=== PATIENT | male | born 1945 | race Caucasian/White ===

== ENCOUNTER 2019-02-01 15:02 | Outpatient (CLI) | payer MEDICARE, OTHER ==
[2019-02-01 15:26] LABS: BASOPHILS # (AUTO) 0.1 10^3/uL (0.0-0.1); BASOPHILS % (AUTO) 1.1 %; EOSINOPHILS # (AUTO) 0.1 10^3/uL (0.0-0.7); EOSINOPHILS % (AUTO) 0.7 %; HGB - HEMOGLOBIN 15.6 g/dL (14.0-18.0); LYMPHOCYTES # (AUTO) 1.6 10^3/uL (1.5-3.5); LYMPHOCYTES % (AUTO) 15.9 %; MEAN CORPUSCULAR HEMOGLOBIN 29.8 pg (27.0-31.0); MEAN CORPUSCULAR HGB CONC 34.6 g/dL (32.0-36.0); MONOCYTES # (AUTO) 1.4 10^3/uL (0.0-1.0); MONOCYTES % (AUTO) 13.4 %; NEUTROPHILS % (AUTO) 68.9 %; PLT - PLATELET COUNT 139 10^3/uL (130-450); RED BLOOD COUNT 5.22 10^6/uL (4.70-6.10); RED CELL DISTRIBUTION WIDTH 14.1 % (12.0-15.0); WHITE BLOOD COUNT 10.2 x10^3/uL (4.8-10.8)
[2019-02-01 15:34] LABS: ALBUMIN 4.1 g/dL (3.2-5.5); ALBUMIN/GLOBULIN RATIO 1.3 (1.0-2.2); BILIRUBIN,TOTAL 1.2 mg/dL (0.2-1.0); CALCIUM 9.6 mg/dL (8.5-10.3); CREATININE 1.1 mg/dL (0.6-1.2); TOTAL PROTEIN 7.2 g/dL (6.7-8.2)
--- NOTE | 2019-02-01 17:18 | Ultrasound Report ---
Reason: RIGHT LEG Procedure Date: 02/01/2019 Accession Number: [id number] / [id number] Procedure: US - Duplex Ext Veins Right CPT Code: FULL RESULT: EXAM: RIGHT LOWER EXTREMITY VENOUS ULTRASOUND EXAM DATE: 02/01/2019 04:57 PM. CLINICAL HISTORY: Right leg soft tissue disorder COMPARISON: None. TECHNIQUE: Real-time sonographic vascular imaging was performed by the monotype mechanic through the lower extremity utilizing both color-flow and Doppler spectral analysis. Multiple open claims representative static images were saved for review. FINDINGS: Common Femoral Vein (CFV): Normal. CFV-GSV Junction: Normal. Profunda Femoral Vein (PFV): Normal. Femoral Vein (FV) Prox: Normal. Femoral Vein (FV) Mid: Normal. Femoral Vein (FV) Dist: Normal. Popliteal Vein: Normal. Posterior Tibial Veins: Normal. Peroneal Veins: Normal. Other: None. IMPRESSION: No evidence for right lower extremity deep venous thrombosis. RADIA
== END 2019-02-01 15:03 | disposition home or self-care (01) ==
LOC: DI 15:02
PROVIDERS: ATTEND Specialist
DX: M79.89 Other specified soft tissue disorders (principal)
CPT/HCPCS: 36415; 80053; 85025; 85379

== ENCOUNTER 2020-08-27 16:54 | Outpatient (CLI) | payer MEDICARE, OTHER | END 2020-08-27 16:55 | disposition critical access hospital (66) | LOC: EMS 16:54 | PROVIDERS: ATTEND Surgery | DX: R11.2 Nausea with vomiting, unspecified (principal); R53.1 Weakness | CPT/HCPCS: A0425; A0427 ==

== ENCOUNTER 2020-08-27 17:22 | Observation (INO) | payer MEDICARE, OTHER ==
--- NOTE | 2020-08-27 17:50 | ED Physician Documentation ---
History of Present Illness - Stated complaint Stated Complaint: NEAR SYNCOPE - Chief complaint Chief Complaint: General - History obtained from History obtained from: Patient, EMS - History of Present Illness Timing: Today Pain level max: 0 Pain level now: 0 - Additonal information Additional information: 75-year-old male with diarrhea x2 today and vomiting x1. [place] lightheaded, weak, dizzy. Had difficulty getting up off the floor. He called a friend who came over and helped him to the bathroom. His friend then called 911 and EMS brought him here. Patient states that he feels much better currently. Denies any fevers, chills. He is currently taking Keflex for left lower extremity cellulitis. He states it has greatly improved as well. Has bilateral lower extremity edema. No abdominal pain. No chest pain. No shortness of breath. No hematemesis or blood in the stool. Review of Systems Ten Systems: 10 systems reviewed and negative Constitutional: denies: Fever, Chills Ears: denies: Ear pain Nose: denies: Rhinorrhea / runny nose, Congestion Throat: denies: Sore throat Respiratory: denies: Cough GI: reports: Nausea, Vomiting, Diarrhea. denies: Abdominal Pain, Abdominal Swelling, Hematemesis, Bloody / black stool : denies: Dysuria, Frequency, Hesitancy Skin: denies: Rash Musculoskeletal: denies: Neck pain, Back pain Neurologic: denies: Headache PD PAST MEDICAL HISTORY - Past Medical History Past Medical History: Yes Cardiovascular: Hypertension, High cholesterol - Past Surgical History Past Surgical History: No - Present Medications Home Medications: Ambulatory Orders Medication Instructions Recorded Confirmed Amlodipine Besylate [Norvasc] 1 tab DAILY 08/27/20 08/27/20 Cephalexin [Keflex] 500 mg QID 08/27/20 08/27/20 Lisinopril [Zestril] 40 mg PO DAILY 08/27/20 08/27/20 Tamsulosin [Flomax] 0.4 mg BID 08/27/20 08/27/20 - Allergies Allergies/Adverse Reactions: Allergies Allergy/AdvReac Type Severity Reaction Status Date / Time No Known Drug Allergies Allergy Verified 08/27/20 17:48 - Living Situation Living Situation: reports: With family Living Arrangement: reports: At home - Social History Does the pt have substance abuse?: No - Family History Family history: reports: Non contributory PD ED PE NORMAL - Vitals Vital signs reviewed: Yes - General General: Alert and oriented X 3, No acute distress, Well developed/nourished - HEENT HEENT: PERRL, Moist mucous membranes - Neck Neck: Supple, no meningeal sign - Cardiac Cardiac: RRR, Strong equal pulses - Respiratory Respiratory: No respiratory distress, Clear bilaterally - Abdomen Abdomen: Soft, Non tender, Non distended - Derm Derm: Warm and dry - Extremities Extremities: Other (2+ pitting edema B, NVI. mild erythema to the L lower leg. NVI) - Neuro Neuro: Alert and oriented X 3 - Psych Psych: Normal mood, Normal affect Results - Vitals Vitals: Vital Signs - 24 hr 08/27/20 08/27/20 08/27/20 17:33 18:30 20:00 Temperature 36.5 C 36.5 C Heart Rate 60 58 L 58 L Respiratory 16 18 18 Rate Blood Pressure 172/75 H 169/86 H 160/84 H O2 Saturation 99 97 96 08/27/20 21:46 Temperature 36.5 C Heart Rate 59 L Respiratory 20 Rate Blood Pressure 179/85 H O2 Saturation 95 Oxygen O2 Source Room air - EKG (time done) 1754 Rate: Rate (enter#) (61) Rhythm: NSR [place]: Normal Intervals: Normal [place] QRS: Normal Ischemia: Non specific changes - Labs Labs: Laboratory Tests 08/27/20 08/27/20 17:52 17:52 WBC 11.3 H RBC 5.13 Hgb 15.2 Hct 46.1 MCV 89.9 MCH 29.6 MCHC 33.0 RDW 12.9 Plt Count 225 MPV 9.8 Neut # (Auto) 9.9 H Lymph # (Auto) 0.6 L [place] # (Auto) 0.6 Eos # (Auto) 0.0 Baso # (Auto) 0.0 Absolute Nucleated RBC 0.00 Nucleated RBC % 0.0 Sodium 137 Potassium 3.4 L Chloride 99 L Carbon Dioxide 25 Anion Gap 13.0 BUN 15 Creatinine 1.0 Estimated GFR (MDRD) 72 L Glucose 187 H Calcium 8.9 Phosphorus 2.6 Magnesium 2.0 Total Bilirubin 0.8 AST 31 ALT 78 H Alkaline Phosphatase 79 Total Protein 7.5 Albumin 3.7 Globulin 3.8 Albumin/Globulin Ratio 1.0 Lipase 22 - Rads (name of study) CT abd/pelvis Radiology: Prelim report reviewed, EMP read contemporaneously, See rad report PD MEDICAL DECISION MAKING - ED course Complexity details: reviewed results, re-evaluated patient, considered differential, d/w patient ED course: Patient with what appears to be a viral gastroenteritis. He is well-appearing, nontoxic. Afebrile. He is not tender over the gallbladder, there is nonspecific gallbladder wall thickening on CT, but without tenderness, doubt cholecystitis clinically. He continues to have cellulitis of the left lower extremity. Given Rocephin. He is only on Keflex, would likely broaden the coverage by adding doxycycline. Patient is still nauseated at the time of signout. Given Phenergan. He will need p.o. challenge and road test to make sure he improves as expected. Patient signed out to the oncoming emergency department physician. 1. No evidence of bowel obstruction. 2. Mild nonspecific gallbladder wall thickening without calcified gallstones or pericholecystic fluid. If there is clinical suspicion for cholecystitis, further evaluation may be obtained with ultrasound. 3. Extensive colonic diverticulosis without acute diverticulitis. 4. Suggestion of mild segmental colonic wall thickening distally which may represent a mild colitis, but evaluation is limited due to incomplete distention. Correlation is recommended clinically. 5. Small fat-containing left inguinal hernia. Departure - Departure Clinical Impression: Viral gastroenteritis, Nausea Cellulitis Qualifiers: Site of cellulitis: unspecified site Qualified Code(s): L03.90 - Cellulitis, unspecified Condition: Stable
[2020-08-27] MEDS: SODIUM CHLORIDE 0.9% 1,000 ML IV STA ×2 (18:00→22:09)
[2020-08-27 18:05] LABS: BASOPHILS % (AUTO) 0.3 %; EOSINOPHILS % (AUTO) 0.2 %; HGB - HEMOGLOBIN 15.2 g/dL (14.0-18.0); LYMPHOCYTES # (AUTO) 0.6 10^3/uL (1.5-3.5); LYMPHOCYTES % (AUTO) 5.5 %; MEAN CORPUSCULAR HEMOGLOBIN 29.6 pg (27.0-31.0); MEAN CORPUSCULAR VOLUME 89.9 fL (80.0-94.0); MEAN PLATELET VOLUME 9.8 fL (7.4-11.4); MONOCYTES # (AUTO) 0.6 10^3/uL (0.0-1.0); MONOCYTES % (AUTO) 5.1 %; NEUTROPHILS # (AUTO) 9.9 10^3/uL (1.5-6.6); NEUTROPHILS % (AUTO) 87.5 %; PLT - PLATELET COUNT 225 10^3/uL (130-450); RED BLOOD COUNT 5.13 10^6/uL (4.70-6.10); RED CELL DISTRIBUTION WIDTH 12.9 % (12.0-15.0); WHITE BLOOD COUNT 11.3 x10^3/uL (4.8-10.8)
[2020-08-27 18:12] LABS: ALBUMIN 3.7 g/dL (3.2-5.5); BILIRUBIN,TOTAL 0.8 mg/dL (0.2-1.0); CALCIUM 8.9 mg/dL (8.5-10.3); PHOSPHORUS 2.6 mg/dL (2.5-4.6); TOTAL PROTEIN 7.5 g/dL (6.7-8.2)
[2020-08-27] MEDS ORDERED: ONDANSETRON 4 MG/2 ML VIAL IVP STA (19:16)
[2020-08-27] MEDS ORDERED: IOVERSOL 320 100 ML VIAL IVP ONE ×2 (19:41→19:58)
--- NOTE | 2020-08-27 20:43 | CT Report ---
PROCEDURE: Abdomen/Pelvis W INDICATIONS: vomiting, abd pain CONTRAST: IV CONTRAST: Optiray 320 ml: 100 PO CONTRAST: *NO PO CONTRAST TECHNIQUE: After the administration of intravenous contrast, 5 mm thick sections acquired from the diaphragms to the symphysis. 5 mm thick coronal and sagittal reformats were acquired. For radiation dose reducti on, the following was used: automated exposure control, adjustment of mA and/or kV according to mike ent size. COMPARISON: None. FINDINGS: Image quality: Excellent. ABDOMEN: Lung bases: There is mild dependent atelectasis bilaterally. Clustered groundglass nodular opacities are demonstrated within the inferior left lingula and left lower lobe. Heart size is normal. Solid organs: Evaluation of the liver demonstrates no focal hepatic lesions. There is mild gallbladd er wall thickening no calcified gallstones or pericholecystic fluid. Biliary system is non dilated. The spleen is normal in size. There are a few small hypodense foci within the spleen suggestive of sm all nonspecific cysts. Pancreas enhances normally without peripancreatic fat stranding or fluid colle ctions. No adrenal nodules. Kidneys demonstrate no hydronephrosis. There is a large exophytic left renal cyst as well as additional small low-density foci within the kidneys bilaterally likely represe nting cysts. Peritoneum and bowel: Small bowel loops demonstrate normal wall thickness and caliber. No pericecal i nflammatory changes to suggest appendicitis. There is extensive diverticulosis throughout the colon w ithout acute diverticulitis. The distal colon is nondistended with suggestion of mild wall thickening in the sigmoid colon and distal descending colon. No free fluid or air. Nodes and vessels: No retroperitoneal or mesenteric adenopathy by size criteria. Aorta and inferior vena cava are normal in size. Miscellaneous: No ventral hernias. PELVIS: Genitourinary: Bladder wall thickness is normal. There is heterogeneous enlargement of the prostate. Miscellaneous: There is a small fat-containing left inguinal hernia. No inguinal adenopathy. Bones: No suspicious bony lesions. No vertebral body compression fractures. IMPRESSION: 1. No evidence of bowel obstruction. 2. Mild nonspecific gallbladder wall thickening without calcified gallstones or pericholecystic fluid . If there is clinical suspicion for cholecystitis, further evaluation may be obtained with ultrasoun d. 3. Extensive colonic diverticulosis without acute diverticulitis. 4. Suggestion of mild segmental colonic wall thickening distally which may represent a mild colitis, but evaluation is limited due to incomplete distention. Correlation is recommended clinically. 5. Small fat-containing left inguinal hernia. Reviewed by: Eric Morales MD on 08/27/2020 8:42 PM PST Approved by: Eric Morales MD on 08/27/2020 8:42 PM PST Station ID: [id number]
[2020-08-27] MEDS ORDERED: cefTRIAXone 1 GM VIAL IVP STA (21:31)
[2020-08-27] MEDS ORDERED: SODIUM CHLORIDE 0.9% 1,000 ML IV STA (22:04)
[2020-08-27] MEDS ORDERED: PROMETHAZINE INJ 25 MG in SODIUM CHLORIDE 0.9% 50 ML IV STA (22:04)
[2020-08-27] MEDS ORDERED: PROMETHAZINE 25 MG/1 ML VIAL ONE (22:16)
[2020-08-28] MEDS ORDERED: PROCHLORPERAZINE 10 MG/2 ML VIAL IVP PRN (00:49)
[2020-08-28] MEDS ORDERED: ONDANSETRON 4 MG/2 ML VIAL IVP PRN (00:49)
[2020-08-28] MEDS ORDERED: ACETAMINOPHEN 325 MG TABLET PO PRN (00:49)
[2020-08-28] MEDS ORDERED: SODIUM CHLORIDE FLUSH 0.9% 10 ML SYRINGE IVP PRN (00:49)
--- NOTE | 2020-08-28 00:56 | HISTORY & PHYSICAL EXAMINATION ---
Chief Complaint - Chief Complaint Chief Complaint: Nausea and vomiting History of Present Illness - Admitted From Admitted From:: Home - History Obtained From Records Reviewed: Yes History obtained from: Patient, ER Physician, EMR - History of Present Illness HPI Comment/Other: This is a 75-year-old male with a past medical history significant for h ypertension, BPH who presents today complaining of generalized weakness along with nausea and vomiting. He states he was diagnosed with cellulitis of the left lower extremity a little over a week ago. He has been on Keflex and has had improvement in the erythema of the left lower extremity although still persist. He was in his usual state of health this morning was able to run errands like driving the postop is without any difficulties. He began to eat a salad for lunch when he developed nausea and vomiting. He felt lightheaded and dizzy but did not pass out. He had a near syncopal episode when he stood up quickly. He denies any chest pain or dyspnea. He denies any abdominal pain. H e states he did have one episode of diarrhea today. He does have some difficulty urinating at times which is chronic for him due to BPH. Denies any dysuria or hematuria. He states his left lower extremity edema is improved but persists. Denies any trauma to the leg. He has been compliant with the Keflex. He reports no current fevers or chills but reports subjective fevers a few days ago. Denies any sick contacts. Reports no sore throat or nasal congestion. He does complain of postnasal drip. In the emergency department, he was found to be afebrile with a temperature of 36.5 C. His heart was in the 60s. Blood pressure was 170/75. He was not tachypneic and saturating well on room air. His labs were significant for mild leukocytosis and potassium of 3.4. His troponin was 16.5. He was given 2 L of normal saline as well as multiple doses of antiemetics in the emergency depart ment. He underwent a CT of the abdomen pelvis which showed mild nonspecific gallbladder wall thickening and extensive diverticulosis without diverticulitis. Mild colonic wall thickening distally which really may represent a mild colitis. Despite hydration antiemetics, he continued to have nausea and vomiting and failed p.o. challenge. He also had significant challenges getting out of bed on his own and due to this, medicine was consulted for admission. I did discuss goals of care with the patient and he would like to be a full code. History - Past Medical History Cardiovascular: reports: Hypertension, High cholesterol Respiratory: reports: Sleep apnea GI: reports: GERD : reports: Benign prostate hypertrophy MRSA Hx?: No Other Past Medical History: LLE cellulitis - Family & Social History Family History Comment/Other: Reports his father had COPD. He was a smoker. His father also suffered from alcoholism. His mother had breast cancer. Living arrangement: At home Living Situation: Alone Social History Notes: He reports living at home alone. He is a non-smoker. He will have occasional alcoholic beverage. 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 Meds/Allgy - Home Medications Home Medications: Ambulatory Orders Medication Instructions Recorded Confirmed Amlodipine Besylate [Norvasc] 1 tab DAILY 08/27/20 08/27/20 Cephalexin [Keflex] 500 mg QID 08/27/20 08/27/20 Lisinopril [Zestril] 40 mg PO DAILY 08/27/20 08/27/20 Tamsulosin [Flomax] 0.4 mg BID 08/27/20 08/27/20 - Allergies Allergies/Adverse Reactions: Allergies Allergy/AdvReac Type Severity Reaction Status Date / Time No Known Drug Allergies Allergy Verified 08/27/20 17:48 Review of Systems - Constitutional Constitutional: reports: Weakness. denies: Fatigue, Fever, Chills, Poor appetite - Ears, Nose & Throat Ears, Nose & Throat: reports: Postnasal drainage. denies: Nasal discharge, Nasal congestion - Cardiovascular Cariovascular: reports: Edema, Lightheadedness. denies: Chest pain, Syncope, Exertional dyspnea, Decr. exercise tolerance - Respiratory Respiratory: denies: Cough, SOB at rest, SOB with exertion - Gastrointestinal Gastrointestinal: reports: Diarrhea, Change in bowel habits, Nausea, Vomiting. denies: Abdominal pain, Constipation, Luis blood emesis, Poor appetite - Genitourinary Genitourinary: reports: Urgency. denies: Dysuria, Frequency, Hematuria - Integumentary Integumentary: reports: Pigment changes - Neurological Neurological: reports: General weakness, Dizziness. denies: Focal weakness - All Other Systems All Other Systems: reports: Reviewed and negative Prior Level of Functionality: He is independent with his ADLs. Exam - Vital Signs Reviewed Vital Signs: Yes Vital Signs: Vital Signs x48h Temp Pulse Resp BP Pulse Ox 08/28/20 00:00 36.5 C 63 18 168/82 H 100 08/27/20 21:46 36.5 C 59 L 20 179/85 H 95 08/27/20 20:00 36.5 C 58 L 18 160/84 H 96 08/27/20 18:30 58 L 18 169/86 H 97 08/27/20 17:33 36.5 C 60 16 172/75 H 99 - Physical Exam General Appearance: positive: No acute distress, Alert Eyes Bilateral: positive: Normal inspection, Conjunctivae nml ENT: positive: ENT inspection nml Neck: positive: Nml inspection Respiratory: positive: No respiratory distress. negative: Wheezes, Rales Cardiovascular: positive: Regular rate & rhythm, No murmur. negative: Tachycardia, Systolic murmur Abdomen: positive: Non-tender, No distention, Abnml bowel sounds (Hyperactive). negative: Tenderness, Guarding, Rebound Skin: positive: Warm, Dry, Other (Does have erythema over the left lower extremity inferior to the knee and superior to the ankle. This is mildly tender to palpation. This is warm to touch) Extremities: positive: Pedal edema (He has +2 pitting edema in the bilateral low er extremities up to the knees.) Neurologic/Psychiatric: positive: Motor nml. negative: Disoriented to person, Disoriented to place Conclusion/Plan - Problem List (1) Viral gastroenteritis Conclusion/Plan: I suspect his nausea and vomiting as well as diarrhea related to a viral gastroenteritis. CT was relatively unremarkable except for some nonspecific gallbladder wall thickening and some distal colonic wall thickening consistent with colitis. He is on antibiotics and does have risk factors for C. difficile although he only reports 1 episode of diarrhea today. Given his persistent norah sea and vomiting inability to take anything by mouth, we will place him in observation. We will continue gentle hydration with lactated Ringer's. If he continues to have diarrhea then we will check for C. difficile. Antiemetics with Zofran and Compazine as needed. Follow-up Covid testing. Clear liquid diet as tolerated. (2) Generalized weakness Conclusion/Plan: I suspect is likely related to the gastroenteritis and dehydration. He has no focal deficits on exam. His EKG has nonspecific ST segment changes but his troponin is negative and he has no chest pain. We will continue with gentle hydration and supportive care as mentioned above. Will consider physical therapy consult if he does not improve weakness standpoint. Check orthostatics. (3) Left leg cellulitis Conclusion/Plan: He continues to have erythema of the left lower extremity along with warmth. He states this is improved for the past week as he has been on Keflex. He has a mild white count also could be reactive. Given his nausea and vomiting, we will place him on IV cefazolin while he is hospitalized. We will check a Dopplers of the left lower extremity to rule out DVT. (4) Hypokalemia Conclusion/Plan: Likely due to GI losses. We will replace this intravenously. Recheck in the morning. (5) Hypertension Conclusion/Plan: He is currently hypertensive with systolic in the 160s to 170s. We will check orthostatics given his generalized weakness and near syncopal episode. We will look to resume his lisinopril in the morning. We will hold off on amlodipine given his lower extremity edema. He may need hydrochlorothiazide if remains hypertensive given the edema. (6) BPH (benign prostatic hyperplasia) Conclusion/Plan: Stable. We will resume his home Flomax. - Lab Results Lab results reviewed: Yes Fish Bones: 08/27/20 17:52 08/27/20 17:52 - Diagnostic Imaging Results Diagnostic Imaging Results: positive: Final report reviewed - EKG Results EKG Interpreted Independently: Yes EKG Comparison: No prior EKG EKG Findings: EKG shows a sinus rhythm with nonspecific ST segment changes. He has flattening of T waves in the inferior leads and V4 to V6. Core Measures - Anticipated LOS I expect patient to be DC'd or transferred within 96 hours.: Yes - Issues Hospital Issues and Management Plan: 75-year-old male presents with generalized weakness and nausea/vomiting. This is likely due to gastroenteritis. We will place him in observation for IV fluids and antiemetics. - DVT/VTE - Prophylaxis VTE/DVT Device ordered at admit?: No Not Ordered - Medical Reason: Contraindicated VTE/DVT Prophylaxis med ordered at admit?: Yes
[2020-08-28] MEDS ORDERED: LACTATED RINGERS 1,000 ML IV SCH (01:00)
[2020-08-28 01:19] LABS: C. PNEUMONIAE- RESP PCR PANEL NOT DETECTED
[2020-08-28] MEDS: SODIUM CHLORIDE FLUSH 0.9% 10 ML SYRINGE IVP SCH ×4 (02:09→23:47)
[2020-08-28] MEDS: POTASSIUM CHLOR 10 MEQ/100 ML 10 MEQ/100 ML BAG IV SCH ×4 (02:09→08:29)
[2020-08-28 05:25] LABS: BASOPHILS % (AUTO) 0.1 %; EOSINOPHILS % (AUTO) 0.1 %; HGB - HEMOGLOBIN 14.4 g/dL (14.0-18.0); LYMPHOCYTES # (AUTO) 1.2 10^3/uL (1.5-3.5); LYMPHOCYTES % (AUTO) 8.6 %; MEAN CORPUSCULAR HEMOGLOBIN 30.1 pg (27.0-31.0); MEAN CORPUSCULAR VOLUME 88.7 fL (80.0-94.0); MEAN PLATELET VOLUME 9.6 fL (7.4-11.4); MONOCYTES # (AUTO) 0.9 10^3/uL (0.0-1.0); NEUTROPHILS # (AUTO) 11.2 10^3/uL (1.5-6.6); NEUTROPHILS % (AUTO) 83.3 %; PLT - PLATELET COUNT 241 10^3/uL (130-450); RED BLOOD COUNT 4.78 10^6/uL (4.70-6.10); RED CELL DISTRIBUTION WIDTH 12.7 % (12.0-15.0); WHITE BLOOD COUNT 13.4 x10^3/uL (4.8-10.8)
[2020-08-28 05:33] LABS: CALCIUM 8.7 mg/dL (8.5-10.3); CREATININE 0.8 mg/dL (0.6-1.2)
[2020-08-28] MEDS ORDERED: ceFAZolin 1 GM in SODIUM CHLORIDE 0.9% MINIBAG 100 ML IV SCH (06:00)
[2020-08-28] MEDS: lisinopriL 20 MG TABLET PO SCH (08:29)
[2020-08-28] MEDS: TAMSULOSIN 0.4 MG CAPSULE PO SCH ×2 (08:29→20:21)
[2020-08-28] MEDS: ENOXAPARIN 40 MG/0.4 ML SYRINGE SUBQ SCH (08:30)
--- NOTE | 2020-08-28 10:59 | Ultrasound Report ---
PROCEDURE: Duplex Ext Veins Left INDICATIONS: Pain, edema, and erythema. TECHNIQUE: Real-time imaging, as well as color and pulse Doppler interrogation, were performed of the lower extr emity deep veins from the inguinal ligament to the popliteal fossa. COMPARISON: None. FINDINGS: The deep veins are normally compressible, and free of intraluminal thrombus. Color and pu lse Doppler demonstrate normal phasic intraluminal flow. There is normal augmentation response to di stal compression maneuver. IMPRESSION: No left lower extremity DVT. Reviewed by: Yon Aburto MD on 08/28/2020 9:57 AM [facility] Approved by: Yon Aburto MD on 08/28/2020 9:57 AM [facility] Station ID: [id number]
--- NOTE | 2020-08-28 11:33 | PHARMACY PROGRESS NOTE ---
- Best Possible Medication History Admit Date and Time: 08/28/20 0049 Processed by: Pharmacy Medication History completed: Yes Patient Interview: Completed Secondary Source(s): Prescription bottles, Pharmacy records, Insurance records As the person ultimately responsible for medication therapy, providers are able to order a medication from an existing home medication list in [facility] via the "Reconcile Routine" prior to Confirmation of that medication by care support representative. Such practice is discouraged except when the physician, in their clinical judgment, deems that a medical need exists for a medication without regard to previous use.
[2020-08-28] MEDS: ceFAZolin 2 GM in SODIUM CHLORIDE 0.9% MINIBAG 100 ML IV SCH ×2 (13:40→21:02)
[2020-08-28] MEDS: SACCHAROMYCES BOULARDII 250 MG CAPSULE PO SCH (17:17)
[2020-08-28] MEDS: hydroCHLOROthiazide 25 MG TABLET PO SCH (20:21)
[2020-08-29 05:25] LABS: BASOPHILS % (AUTO) 0.4 %; EOSINOPHILS # (AUTO) 0.3 10^3/uL (0.0-0.7); EOSINOPHILS % (AUTO) 2.6 %; HGB - HEMOGLOBIN 14.7 g/dL (14.0-18.0); LYMPHOCYTES # (AUTO) 1.9 10^3/uL (1.5-3.5); LYMPHOCYTES % (AUTO) 18.9 %; MEAN CORPUSCULAR HEMOGLOBIN 29.6 pg (27.0-31.0); MEAN CORPUSCULAR HGB CONC 32.5 g/dL (32.0-36.0); MEAN CORPUSCULAR VOLUME 91.1 fL (80.0-94.0); MEAN PLATELET VOLUME 9.6 fL (7.4-11.4); MONOCYTES # (AUTO) 0.7 10^3/uL (0.0-1.0); MONOCYTES % (AUTO) 7.4 %; NEUTROPHILS # (AUTO) 6.8 10^3/uL (1.5-6.6); NEUTROPHILS % (AUTO) 68.9 %; PLT - PLATELET COUNT 296 10^3/uL (130-450); RED BLOOD COUNT 4.96 10^6/uL (4.70-6.10); WHITE BLOOD COUNT 9.9 x10^3/uL (4.8-10.8)
[2020-08-29 05:34] LABS: CALCIUM 9.2 mg/dL (8.5-10.3)
[2020-08-29] MEDS: ceFAZolin 2 GM in SODIUM CHLORIDE 0.9% MINIBAG 100 ML IV SCH (06:08)
[2020-08-29] MEDS ORDERED: POTASSIUM CHLORIDE 20 MEQ TABLET PO ONE (07:10)
[2020-08-29] MEDS: SACCHAROMYCES BOULARDII 250 MG CAPSULE PO SCH (07:55)
--- NOTE | 2020-08-29 07:58 | Discharge Plan ---
Discharge Plan Problem Reviewed?: Yes Disposition: Home, Self Care Condition: Stable Diet: Regular Activity Restrictions: Activity as Tolerated Shower Restrictions: No Driving Restrictions: No Health Concerns: While you are being treated for skin infection with antibiotics, you then started developing nausea and vomiting with one episode of diarrhea. This caused her to be very weak and fatigued. You came to the emergency room and we found you to have mild gastroenteritis. When we try to send you home you were still too weak and you could not get up to walk. After an overnight stay with aggressive IV fluids to hydrate you, you are now tolerating clear liquids which progressed to a regular diet. You are no longer having nausea or vomiting. You feel strong enough to sit up at the side of the bed, stand and walk to the bathroom on your own. Plan of Treatment: 1. No change in diet at this time. You are tolerating regular diet. 2. Please see your primary care provider in the next 2 to 3 weeks just for generalized follow-up in case you are still having any mild symptoms. Care Goals: To remain free of nausea, vomiting, diarrhea Assessment: Patient will come back to the emergency room if any severe symptoms recur and he can no longer get up and walk No Smoking: If you smoke, Please STOP! Call for help. Follow-up with: HEDY GARZA MD [Primary Care Provider] -
[2020-08-29] MEDS: hydroCHLOROthiazide 25 MG TABLET PO SCH (08:13)
[2020-08-29] MEDS: TAMSULOSIN 0.4 MG CAPSULE PO SCH (08:13)
[2020-08-29] MEDS: lisinopriL 20 MG TABLET PO SCH (08:13)
[2020-08-29] MEDS: SODIUM CHLORIDE FLUSH 0.9% 10 ML SYRINGE IVP SCH (08:14)
[2020-08-29] MEDS: ENOXAPARIN 40 MG/0.4 ML SYRINGE SUBQ SCH (08:14)
--- NOTE | 2020-08-29 08:15 | DISCHARGE SUMMARY ---
"Discharge Summary Admit Date: 08/28/20 Discharge Date: 08/29/20 Discharging Provider: Juany Elizalde MD Primary Care Provider: Christian Bass MD Code Status: Attempt Resuscitation Condition at Discharge: Stable Discharge Disposition: 01 Home, Self Care - DIAGNOSES Discharge Diagnoses with Status of Each Condition: 1. Viral gastroenteritis 2. Generalized weakness 3. Left leg cellulitis 4. Hypokalemia 5. Hypertension 6. Benign prostatic hypertrophy with urinary retention - HPI History of Present Illness: This is a 75-year-old male with a past medical history significant for hypertension, BPH who presents today complaining of generalized weakness along with nausea and vomiting. He states he was diagnosed with cellulitis of the left lower extremity a little over a week ago. He has been on Keflex and has had improvement in the erythema of the left lower extremity although still persist. He was in his usual state of health this morning was able to run errands like driving the postop is without any difficulties. He began to eat a salad for lunch when he developed nausea and vomiting. He felt lightheaded and dizzy but did not pass out. He had a near syncopal episode when he stood up quickly. He denies any chest pain or dyspnea. He denies any abdominal pain. He states he did have one episode of diarrhea today. He does have some difficulty urinating at times which is chronic for him due to BPH. Denies any dysuria or hematuria. He states his left lower extremity edema is improved but persists. Denies any trauma to the leg. He has been compliant with the Keflex. He reports no current fevers or chills but reports subjective fevers a few days ago. Denies any sick contacts. Reports no sore throat or nasal congestion. He does complain of postnasal drip. In the emergency department, he was found to be afebrile with a temperature of 36.5 C. His heart was in the 60s. Blood pressure was 170/75. He was not tachypneic and saturating well on room air. His labs were significant for mild leukocytosis and potassium of 3.4. His troponin was 16.5. He was given 2 L of normal saline as well as multiple doses of antiemetics in the emergency department. He underwent a CT of the abdomen pelvis which showed mild nonspecific gallbladder wall thickening and extensive diverticulosis without diverticulitis. Mild colonic wall thickening distally which really may represent a mild colitis. Despite hydration antiemetics, he continued to have nausea and vomiting and failed p.o. challenge. He also had significant challenges getting out of bed on his own and due to this, medicine was consulted for admission. I did discuss goals of care with the patient and he would like to be a full code. - Past Medical History Cardiovascular: reports: Hypertension, High cholesterol Respiratory: reports: Sleep apnea GI: reports: GERD : reports: Benign prostate hypertrophy MRSA Hx?: No Other Past Medical History: LLE cellulitis - CONSULTS | PROCEDURES Procedures: 1. Abdomen/pelvis CT. No evidence of bowel obstruction. Mild nonspecific gallbladder wall thickening without stones or pericholecystic fluid. Extensive colonic diverticulosis without diverticulitis. Suggestion of mild segmental colonic wall thickening distally which may represent mild colitis. Incomplete distention. Small fat-containing left inguinal hernia. 2. Venous duplex study of left leg without lower extremity DVT - HOSPITAL COURSE Hospital Course: Patient was treated as either food poisoning or gastroenteritis. He was supported with IV fluids, antiemetics. He started to get hungry and was started on a clear liquid diet, he tolerated that well and was advanced to a normal diet. By the morning of discharge she was eating a full breakfast without any abdominal pain, nausea, vomiting or diarrhea. At discharge temperature is 36 7, pulse 57, blood pressure 170/80. Respiration 16 and is 94% on room air. He is 5 feet 10 inches tall and weighs 105.5 kg. He most likely needs to have his blood pressure medications adjusted. Even on Norvasc 10 mg daily and Zestril 40 mg daily he appears to be high. He is a stocky middle-aged white male looks stated age. Cheerful, sitting up at the side of the bed and able to stand to go to the bathroom on his own without ataxia. Neck is supple. Lungs are clear without any increased respiratory effort. PMI normally placed with a regular rate and rhythm. Abdomen is obese, soft, nontender. Extremities are without edema.He continues to have a trace of redness over the left leg with cellulitis. But there is no open wound, no drainage. He came in on Keflex. Received Ancef for the 2 days he was here. He is almost done to complete that antibiotic regime. I have asked him to please see his primary care provider in the next 2 weeks for routine follow-up for continuity of care.I have also asked him to make sure that his blood pressure stays below 140/90 - ALLERGIES Allergies/Adverse Reactions: Allergies Allergy/AdvReac Type Severity Reaction Status Date / Time No Known Drug Allergies Allergy Verified 08/27/20 17:48 - MEDICATIONS Home Medications: Ambulatory Orders Medication Instructions Recorded Confirmed Amlodipine Besylate [Norvasc] 10 mg PO DAILY 08/27/20 08/28/20 Cephalexin [Keflex] 500 mg QID 08/27/20 08/27/20 Lisinopril [Zestril] 40 mg PO DAILY 08/27/20 08/27/20 Tamsulosin [Flomax] 0.4 mg BID 08/27/20 08/27/20 Fluticasone [Flonase] 1 - 2 sprays KUN DAILY PRN 08/28/20 08/28/20 - LABS Result Diagrams: 08/29/20 05:00 08/29/20 05:00"
[2020-08-29 08:17] VITALS: BP 168/79
--- NOTE | 2020-09-27 01:24 | ED Physician Documentation ---
ED Addendum - Addendum Addendum: 09/27/20 01:20 ED addendum regarding patient's ED visit 08/27/20. I received sign out from Dr. Capps at end of his shift; patient was pending reevaluation after IV fluids and antinauseants. Unfortunately, on my reevaluation, patient reports he still feels constant nausea despite ED interventions; he has many medications to take at home, including antibiotics, and thus discharge would be unwise. Furthermore, he remains too weak to stand on his own when ED RN attempted to do so. I discussed the case with Dr. Hernandez, [facility] hospitalist, who will admit to hospitalist service.
== END 2020-08-29 11:50 | disposition home or self-care (01) ==
LOC: EDUNIT# → ED 17:22 → MS2 08-28 00:49
PROVIDERS: ADMIT Internal Medicine; ATTEND Specialist
DX: A08.4 Viral intestinal infection, unspecified (principal); R53.1 Weakness; L03.116 Cellulitis of left lower limb; E87.6 Hypokalemia; I10 Essential (primary) hypertension; N40.1 Benign prostatic hyperplasia with lower urinary tract symptoms; R33.8 Other retention of urine; K57.30 Diverticulosis of large intestine without perforation or abscess without bleeding; R09.82 Postnasal drip; K82.8 Other specified diseases of gallbladder; E86.0 Dehydration
CPT/HCPCS: 36415; 74177; 80048; 80053; 83690; 83735; 84100; 84484; 85025; 87631; 93005; 93971; 96365; 96366; 96367; 96375; 99285; A9270; G0378; J7040; J7120; Q9967; 0202U

== ENCOUNTER 2022-05-31 15:22 | Outpatient (CLI) | payer MEDICARE | END 2022-05-31 15:23 | disposition short-term general hospital (02) | LOC: EMS 15:22 | DX: R53.1 Weakness (principal); R41.0 Disorientation, unspecified; R32 Unspecified urinary incontinence; M79.89 Other specified soft tissue disorders | CPT/HCPCS: A0425; A0427 ==

== ENCOUNTER 2023-05-08 08:00 | Outpatient (CLI) | payer MEDICARE | END 2023-05-08 23:59 | disposition home or self-care (01) | LOC: LAB.S 08:00 | PROVIDERS: ATTEND Physician Assistant | DX: R53.83 Other fatigue (principal); Z20.822 Contact with and (suspected) exposure to COVID-19 ==

== ENCOUNTER 2023-05-08 08:00 | Outpatient (CLI) | payer MEDICARE ==
--- NOTE | 2023-05-08 16:11 | XRAY Report ---
PROCEDURE: Chest 2 View X-Ray INDICATIONS: CHEST PAIN, RIGHT TECHNIQUE: 2 views of the chest were acquired. COMPARISON: None. FINDINGS: Surgical changes and devices: None. Lungs and pleura: Right lower lobe airspace opacity. Mediastinum: Mediastinal contours appear normal. Heart size is normal. Bones and chest wall: No suspicious bony lesions. Overlying soft tissues appear unremarkable. IMPRESSION: Right lower lobe airspace opacity, best seen on lateral view. Differential includes infection, atelec tasis or malignancy. Correlate with leukocytosis. If absent, recommend chest CT. Reviewed by: Vinod Hui on 05/08/2023 4:10 PM PDT Approved by: Vinod Hui on 05/08/2023 4:10 PM PDT Station ID: [id number]
== END 2023-05-08 23:59 | disposition home or self-care (01) ==
LOC: DI.S 08:00
PROVIDERS: ATTEND Physician Assistant
DX: R07.89 Other chest pain (principal)

== ENCOUNTER 2024-03-21 15:39 | Outpatient (CLI) | payer MEDICARE | END 2024-03-21 23:59 | disposition left against medical advice (07) | LOC: EMS 15:39 | DX: R61 Generalized hyperhidrosis (principal); R11.2 Nausea with vomiting, unspecified; R06.82 Tachypnea, not elsewhere classified; T67.9XXA Effect of heat and light, unspecified, initial encounter; X32.XXXA Exposure to sunlight, initial encounter; Y92.481 Parking lot as the place of occurrence of the external cause ==